=== PATIENT | female | born 1970 | race Caucasian/White ===

== ENCOUNTER 2016-11-20 11:55 | Day surgery (SDC) | payer OTHER ==
[~2016-11-20] VITALS: Ht 185.4 cm; Wt 73.0 kg
[~2016-11-20 11:55] MED LIST: 0.9% Sodium Chloride 1,000 ML IV SCH; ACET325T51 PO; BIOT1TAB13 PO; IBUP200C PO; MULT-447 PO; Sodium Chloride LOK Flush 10 mL Syringe IV PRN; fentaNYL-PF 50 mCg/mL 2 mL Inj IVPUSH PRN
[2016-11-20 12:32] VITALS: BP 110/75; PULSE 69; O2SAT 68
[2016-11-20 13:46] VITALS: BP 111/67; PULSE 65; RESP 16; O2SAT 97
[2016-11-20 13:56] VITALS: BP 104/68; PULSE 70; RESP 16; O2SAT 100
[2016-11-20 14:06] VITALS: BP 104/69; PULSE 65; RESP 16; O2SAT 100
--- NOTE | 2016-11-20 14:45 | ENDO ---
[address] [address] ENDOSCOPY PROCEDURE PATIENT: XIAO KENT : 1970 MR#: [id number] ADMIT: 11/20/2016 JOB ID: [id number] PROCEDURE: Colonoscopy. INDICATION: Blood in stool. The patient's ASA classification is I. Mallampati score is II. MEDICATIONS: Versed 5 mg, fentanyl 100 mcg. INSTRUMENT USED: PCF-H180AL. Prep quality was good. PROCEDURE DETAILS: After informed consent was obtained, the patient was brought to the GI suite, where she was placed on oxygen via nasal cannula and monitored with continuous pulse oximeter, telemetry, and blood pressure monitoring. A time-out was performed. Then, she was placed in a left lateral decubitus position and medications were administered for sedation. Digital rectal exam was performed and was unremarkable. The colonoscope was then inserted into the rectum and advanced under direct visualization to the cecum, which was identified by the presence of the ileocecal valve and appendiceal orifice. Once the cecum was reached, the colonoscope was withdrawn back into the rectum as the mucosa and lumen were examined. In the rectum, retroflexion was performed. Following retroflexion, remaining air in the rectum was suctioned, and procedure was completed. FINDINGS: Throughout the entire colon, the colon mucosa appeared hyperpigmented. Otherwise normal exam from rectum to cecum. IMPRESSION: Melanosis coli. Otherwise normal exam. RECOMMENDATIONS: Repeat colonoscopy in 10 years, sooner if symptoms should dictate. COMPLICATIONS: None. ESTIMATED BLOOD LOSS: Zero.
== END 2016-11-20 23:59 | disposition home or self-care (01) ==
LOC: END 11:55
PROVIDERS: ATTEND Internal Medicine Gastroenterology
DX: K92.1 Melena (principal); K62.5 Hemorrhage of anus and rectum; K63.89 Other specified diseases of intestine
CPT/HCPCS: 45378; G0500; J2250; J3010; J7030